=== PATIENT | male | born 1990 | race Caucasian/White ===

== ENCOUNTER 2020-06-14 11:42 | Emergency (ER) | payer BC ==
[~2020-06-14] VITALS: Ht 167.6 cm; Wt 68.0 kg
[2020-06-14] MEDS ORDERED: NORCO5 PO (14:08)
== END 2020-06-14 12:05 | disposition home or self-care (01) ==
LOC: ER 11:42
DX: K64.5 Perianal venous thrombosis (principal)

== ENCOUNTER 2020-06-14 13:40 | Emergency (ER) | payer BC ==
[~2020-06-14] VITALS: Ht 167.6 cm; Wt 66.2 kg
[2020-06-14 13:45] VITALS: BP 127/81
[2020-06-14] MEDS ORDERED: NORCO5 PO (14:08)
== END 2020-06-14 14:26 | disposition home or self-care (01) ==
LOC: ER 13:40
DX: K64.5 Perianal venous thrombosis (principal)